=== PATIENT | male | born 1955 | race Caucasian/White ===

== ENCOUNTER 2024-01-02 07:34 | Day surgery (SDC) | payer OTHER ==
[2023-12-27 12:42] VITALS: BMI 28.8
[2024-01-02] MEDS ORDERED: PROPOFOL 160 ML ONE (07:40)
[2024-01-02] MEDS ORDERED: LIDOCAINE HCL/PF 2% SDV 5ML VIAL ONE (07:40)
[2024-01-02 07:57] VITALS: RESP 18
[2024-01-02 09:54] VITALS: TEMP 97.9
[2024-01-02 10:01] VITALS: BP 110/66; PULSE 66
== END 2024-01-02 09:30 | disposition home or self-care (01) ==
LOC: FASU-ENDO 07:34
PROVIDERS: ATTEND Internal Medicine Gastroenterology
PROC: 0DJD8ZZ Inspection of Lower Intestinal Tract, Via Natural or Artificial Opening Endoscopic (ICD-10-PCS; principal; 2024-01-02 08:25)
DX: Z12.11 Encounter for screening for malignant neoplasm of colon (principal)